=== PATIENT | female | born 1990 | race Caucasian/White ===

== ENCOUNTER 2017-06-21 06:28 | Emergency (ER) | payer OTHER ==
[~2017-06-21] VITALS: Ht 167.6 cm; Wt 81.7 kg
[~2017-06-21 06:28] MED LIST: ACETAMINOPHEN-1 EAC1 PO; AMOXICILLIN500 MG PO; BACTRIM DS TAB1 EACH PO; CEPACOL SORE T1 EAC5 MM; CLONAZEPAM0.5 MG PO; CLONAZEPAM1 MG PO; CLONIDINE HCL0.1 MG PO; CYCLOBENZAPRINE10 MG PO; CYMBALTA60 MG PO; DIFLUCAN150 MG PO; DULOXETINE HCL60 MG PO; FLEXERIL10 MG PO; HYDROCODON-ACE1 EA10 PO; IBUPROFEN600 MG PO; IBUPROFEN800 MG PO; KEFLEX500 MG PO; LAMICTAL100 MG PO; LEVAQUIN500 MG PO; MELATONIN1 MG PO; METHOCARBAMOL500 MG PO; MIRENA1 EACH IY; MOTRIN IB200 MG PO; MOTRIN800 MG PO; NICORETTE4 M1 BUCCAL; NORCO 5-325 TA1 EACH PO; ONDANSETRON ODT4 MG PO; OSTERA TABLET1 EACH PO; PENICILLIN V P500 MG PO; PERCOCET 5-3251 EACH PO; PORTIA1 EACH PO; PROMETHAZINE HC25 M1 PO; PROMETHAZINE12.5 M1 PO; PROPRANOLOL HCL20 MG PO; PROPRANOLOL HCL40 MG PO; PROVENTIL HFA6.7 GM INH; PYRIDIUM200 MG PO; QUASENSE1 EACH PO; SEASONIQUE 0.11 EACH PO; SEPTRA DS TABL1 EACH PO; SUBOXONE 8 MG-1 EAC1 SL; TESSALON PERLE100 MG PO; TRAMADOL HCL50 MG PO; ULTRAM50 MG PO; VALIUM5 MG PO; VICODIN HP 10-1 EAC1 PO; VISTARIL25 MG PO; WELLBUTRIN100 MG PO; ZOFRAN ODT4 MG PO; ZOFRAN ODT4 MG SL; ZOFRAN ODT8 MG PO; ZOLPIDEM TARTRA10 MG PO; [UNRECOGNIZED DRUG - REMARK]
[2017-06-21] MEDS ORDERED: CLOMIPRAMINE HC75 MG PO (06:47)
[2017-06-21] MEDS ORDERED: LAMOTRIGINE100 MG PO (06:48)
[2017-06-21] MEDS ORDERED: CLONAZEPAM1 MG PO (06:48)
[2017-06-21] MEDS ORDERED: ONDANSETRON ODT8 MG PO (07:49)
[2017-06-21] MEDS ORDERED: PROTONIX40 MG PO (07:49)
== END 2017-06-21 08:05 | disposition home or self-care (01) ==
LOC: ED 06:28
DX: K29.70 Gastritis, unspecified, without bleeding (principal); F31.9 Bipolar disorder, unspecified; M79.7 Fibromyalgia; F17.200 Nicotine dependence, unspecified, uncomplicated; Z87.442 Personal history of urinary calculi; Z90.89 Acquired absence of other organs; Z90.49 Acquired absence of other specified parts of digestive tract; Z79.899 Other long term (current) drug therapy
CPT/HCPCS: 80053; 81001; 82150; 83690; 84703; 85025; 96374; 96375; 99283; J1170; J2405; J7030

== ENCOUNTER 2017-10-06 13:57 | Emergency (ER) | payer OTHER ==
[~2017-10-06] VITALS: Ht 167.6 cm; Wt 81.7 kg
--- OUTSIDE RECORDS SUMMARY | ~2017-10-06 | XMS | Clinical Summary ---
Demographics + + + | Address | [address] | | | [place] [address] | + + + | Home Phone | | + + + | Preferred Language | Unknown | + + + | Marital Status | Single | + + + | Orthodoxy Affiliation | Unknown | + + + | Race | Unknown | + + + | Ethnic Group | Other Race | + + + Author + + + | Author | [facility] | + + + | Organization | [facility] | + + + | Address | Unknown | + + + | Phone | Unavailable | + + + Care Team Providers + +------+ + | Care Commercial Sales Specialist Name | Role | Phone | + +------+ + PP | Unavailable | + +------+ + Source Comments ZAK is fully live on both [facility] Amb[facility] and [facility] InPatient.[facility] Allergies Not on File Current [...]
--- OUTSIDE RECORDS SUMMARY | ~2017-10-06 | XMS | Clinical Summary ---
Demographics + + + | Address | [address] | | | [place] [address] | + + + | Home Phone | | + + + | Preferred Language | Unknown | + + + | Marital Status | Single | + + + | Quaker Affiliation | Unknown | + + + | Race | Unknown | + + + | Ethnic Group | Other Race | + + + Author + + + | Author | [facility] | + + + | Organization | [facility] | + + + | Address | Unknown | + + + | Phone | Unavailable | + + + Care Team Providers + +------+ + | Care Shiftman Name | Role | Phone | + +------+ + PP | Unavailable | + +------+ + Source Comments ZAK is fully live on both [facility] and [facility] InPatient.[facility] & [facility] Allergies Not on File Current Medications Not [...]
[~2017-10-06 13:57] MED LIST changes: +CLOMIPRAMINE HC75 MG PO; +LAMOTRIGINE100 MG PO; +ONDANSETRON ODT8 MG PO; +PROTONIX40 MG PO
[2017-10-06] MEDS ORDERED: XANAX0.5 MG PO (14:49)
[2017-10-09] MEDS ORDERED: PHENERGAN25 MG PR (18:04)
[2017-10-09] MEDS ORDERED: ZOFRAN ODT4 MG PO (18:04)
== END 2017-10-06 14:59 | disposition home or self-care (01) ==
LOC: ED 13:57
DX: F41.9 Anxiety disorder, unspecified (principal); F32.9 Major depressive disorder, single episode, unspecified; F17.200 Nicotine dependence, unspecified, uncomplicated; Z79.899 Other long term (current) drug therapy
CPT/HCPCS: 99283

== ENCOUNTER 2017-11-05 02:32 | Emergency (ER) | payer OTHER ==
[~2017-11-05] VITALS: Ht 167.6 cm; Wt 81.7 kg
[~2017-11-05 02:32] MED LIST changes: +PHENERGAN25 MG PR; +XANAX0.5 MG PO
--- OUTSIDE RECORDS SUMMARY | 2017-11-05 04:23 | XMS | Clinical Summary ---
Demographics + + + | Address | [address] | | | [place] [address] | + + + | Home Phone | | + + + | Preferred Language | Unknown | + + + | Marital Status | Single | + + + | Jewish Affiliation | Unknown | + + + | Race | Unknown | + + + | Ethnic Group | Other Race | + + + Author + + + | Author | [facility] | + + + | Organization | [facility] | + + + | Address | Unknown | + + + | Phone | Unavailable | + + + Care Team Providers + +------+ + | Care Outbound Sales Specialist Name | Role | Phone | + +------+ + PP | Unavailable | + +------+ + Source Comments ZAK is fully live on both [facility] and [facility] InPatient.[facility] Allergies Not on File Current Medications Not on file Active Problems Not on file Social History + +-------+ +--------+------+ | Tobacco Use | Types | Packs/Day | Years | Date | | | | | Used | | + +-------+ +--------+------+ | Never Assessed | | | | | + +-------+ +--------+------+ + + + | Sex Assigned at | Date Recorded | | | | + + + | Not on file | | + + + Plan of Treatment + + + + + | Health Maintenance | Due Date | Last Done | Comments | + + + + + | INFLUENZA VACCINE | | | | | (FLU SHOT) | 7 | | | + + + + + Results Not on filefrom Last 3 Months"
--- OUTSIDE RECORDS SUMMARY | 2017-11-05 04:23 | XMS | Clinical Summary ---
Demographics + + + | Address | [address] | | | [place] [address] | + + + | Home Phone | | + + + | Preferred Language | Unknown | + + + | Marital Status | Single | + + + | Sikhism Affiliation | Unknown | + + + | Race | Unknown | + + + | Ethnic Group | Other Race | + + + Author + + + | Author | [facility] | + + + | Organization | [facility] | + + + | Address | Unknown | + + + | Phone | Unavailable | + + + Care Team Providers + +------+ + | Care Filter Press Operator Name | Role | Phone | + +------+ + PP | Unavailable | + +------+ + Source Comments ZAK is fully live on both [facility] and [facility] InPatient.[facility] & [facility] Allergies Not on File Current Medications [...]
[2017-11-05] MEDS ORDERED: PHENERGAN25 MG PR (10:29)
== END 2017-11-05 05:31 | disposition home or self-care (01) ==
LOC: ED 02:32
DX: K52.9 Noninfective gastroenteritis and colitis, unspecified (principal); F31.9 Bipolar disorder, unspecified; F32.9 Major depressive disorder, single episode, unspecified; F17.200 Nicotine dependence, unspecified, uncomplicated; Z79.899 Other long term (current) drug therapy
CPT/HCPCS: 80053; 81001; 83690; 84703; 85025; 87088; 96374; 96375; 99283; J2270; J2405; J2550; J7030

== ENCOUNTER 2017-11-05 09:21 | Emergency (ER) | payer OTHER ==
[~2017-11-05] VITALS: Ht 167.6 cm; Wt 79.4 kg
[2017-11-05] MEDS ORDERED: PHENERGAN25 MG PR (10:29)
== END 2017-11-05 10:59 | disposition home or self-care (01) ==
LOC: ED 09:21
DX: G43.A0 Cyclical vomiting, in migraine, not intractable (principal); F31.9 Bipolar disorder, unspecified; Z87.442 Personal history of urinary calculi; F17.200 Nicotine dependence, unspecified, uncomplicated; Z79.899 Other long term (current) drug therapy
CPT/HCPCS: 96372; 96374; 99283; J2405; J3486; J7030

== ENCOUNTER 2019-10-22 08:59 | Emergency (ER) | payer OTHER ==
[~2019-10-22] VITALS: Ht 167.6 cm; Wt 79.4 kg
--- OUTSIDE RECORDS SUMMARY | 2019-10-22 09:02 | XMS ---
PreManage Notification: SERA BEVERLY Security Kiss Machine Operator Events No recent Security Events currently on file CRITERIA MET - Group Notification CARE PROVIDERS EBENEZER FALK Padded Products Inspector Trimmer Current PHONE: [phone] [facility] Current PHONE: [phone] \\E\\"ORESTES JOHNSON\\" Nurse Practitioner Current PHONE: [phone] DR VIDAL Contreras 09/05/2017-Current PHONE: [phone] ROSE YA Primary Care 01/07/2019-Current PHONE: Unknown RAPHAEL JAY Primary Care Current PHONE: Unknown Zak Mercedes Mental Health Provider 04/27/2018-05/04/2018 [facility] PHONE: Unknown KATELYNN HOBSON Primary Care Current PROVIDERS PHONE: Unknown Nichloe Argueta Primary Care Wendie MEEKS PHONE: [phone] Ivelisse has no Care Guidelines for this patient. Care History Substance Use/Overdose 10/09/2017 [facility] PT IS UNDER SUBOXONE TREATMENT PROGRAM WITH DR VIDAL BARRERA OF [employer] [facility] ([phone]). DO NOT GIVE OPIATES IF PATIENT IS SEEN IN ED. Marielena VISIT COUNT (12 MO.) 3 [facility] 1 [facility] 1 [facility] TOTAL 6 NOTE: Visits indicate total known visits. ED/C VISIT TRACKING (12 MO.) 10/22/2019 09:00 [facility] [place] TYPE: Emergency COMPLAINT: - RIGHT SIDE ABD PAIN 08/26/2019 10:45 [facility] TYPE: Emergency DIAGNOSES: - Major depressive disorder, single episode, unspecified - Medication Refill - Anxiety disorder, unspecified 05/12/2019 17:21 [facility] TYPE: Emergency DIAGNOSES: 78759. Acute post-traumatic headache, not intractable 46490. Contusion of lower back and pelvis, initial encounter 53293. Strain of muscle, fascia and tendon at neck level, init 85047. Contusion of scalp, initial encounter 98994. Contusion of left upper arm, initial encounter 75531. Contusion of left front wall of thorax, initial encounter 04/04/2019 20:01 [facility] [place] TYPE: Emergency DIAGNOSES: - Pelvic Pain - Pelvic and perineal pain 01/30/2019 13:10 [facility] [place] TYPE: Emergency DIAGNOSES: - Dental Pain - Other specified disorders of teeth and supporting structures 12/03/2018 05:21 [facility] [place] TYPE: Emergency DIAGNOSES: - Pelvic and perineal pain - Pelvic Pain INPATIENT VISIT TRACKING (12 MO.) No inpatient visits to display in this time frame [id number]
[2019-10-22] MEDS ORDERED: LAMOTRIGINE100 MG PO (09:24)
[2019-10-22] MEDS ORDERED: ZYPREXA5 MG PO (09:25)
== END 2019-10-22 11:00 | disposition home or self-care (01) ==
LOC: ED 08:59
DX: N93.8 Other specified abnormal uterine and vaginal bleeding (principal); N83.201 Unspecified ovarian cyst, right side; F31.9 Bipolar disorder, unspecified; F17.200 Nicotine dependence, unspecified, uncomplicated; Z79.899 Other long term (current) drug therapy
CPT/HCPCS: 51701; 81001; 84703; 99284-25

== ENCOUNTER 2019-11-22 16:25 | Emergency (ER) | payer OTHER ==
[~2019-11-22] VITALS: Ht 167.6 cm; Wt 83.9 kg
[~2019-11-22 16:25] MED LIST changes: +ZYPREXA5 MG PO
--- OUTSIDE RECORDS SUMMARY | 2019-11-22 16:28 | XMS ---
PreManage Notification: SERA BEVERLY Security Fabrication Inspector Events No recent Security Events currently on file CRITERIA MET - Group Notification - [facility] - Has Care Guidelines - PDMP CARE PROVIDERS EBENEZER FALK Chemical Applicator Current PHONE: [phone] [facility] Current PHONE: [phone] KAMALJIT JOHNSON Nurse Kathie Current PHONE: [phone] DR VIDAL Contreras 09/05/2017-Current PHONE: [phone] HANK ROSE Primary Care 01/07/2019-Current PHONE: [phone] RAPHAEL JAY Primary Care Current PHONE: Unknown Zak Mercedes Mental Health Provider 04/27/2018-05/04/2018 [facility] PHONE: Unknown HELLEN MELISSA Primary Care [facility] PHONE: Unknown Nichole Argueta Primary Care Wendie MEEKS PHONE: [phone] Ivelisse has no Care Guidelines for this patient. Care History Medical/Surgical 10/25/2019 [facility] \T\middot;\T\nbsp; PATIENT IS A [employer] MEMBER. \T\middot;\T\nbsp; PLEASE REFER PATIENT TO [facility] FOR NON EMERGENT MEDICAL NEEDS. \T\middot;\ T\nbsp; [facility] CAN SEE PATIENTS SAME DAY FOR APTS IF PATIENT CALLS FIRST THING IN THE MORNING. Substance Use/Overdose 10/09/2017 [facility] PT IS UNDER SUBOXONE TREATMENT PROGRAM WITH DR VIDAL BARRERA OF [employer] [facility] ([phone]). DO NOT GIVE OPIATES IF PATIENT IS SEEN IN ED. E.D. VISIT COUNT (12 MO.) 3 [facility] 1 [facility] 1 [facility] 2 [facility]. TOTAL 7 NOTE: Visits indicate total known visits. 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 Acute post-traumatic headache, not intractable 52692. Contusion of lower back and pelvis, initial encounter 84820. Strain of muscle, fascia [place] [address]. Contusion of scalp, initial encounter 26056. Contusion of left upper arm, initial encounter 44461. Contusion of left front wall of thorax, initial encounter 04/04/2019 20:01 [facility] [place] TYPE: Emergency DIAGNOSES: - Pelvic Pain - Pelvic and perineal pain 01/30/2019 13:10 [facility] [place] TYPE: Emergency DIAGNOSES: - Dental Pain - Other specified disorders of teeth and supporting structures 12/03/2018 05:21 [facility] [place] TYPE: Emergency DIAGNOSES: - Pelvic and perineal pain - Pelvic Pain INPATIENT VISIT TRACKING (12 MO.) No inpatient visits to display in this time frame [id number]
[2019-11-22] MEDS ORDERED: MINIPRESS1 MG PO (16:58)
== END 2019-11-22 19:45 | disposition home or self-care (01) ==
LOC: ED 16:25
DX: O20.0 Threatened abortion (principal)
CPT/HCPCS: 76801; 76817; 81001; 84702; 85025; 99284-25

== ENCOUNTER 2020-12-31 13:28 | Emergency (ER) | payer OTHER ==
[~2020-12-31] VITALS: Ht 167.6 cm; Wt 83.9 kg
[~2020-12-31 13:28] MED LIST changes: +MINIPRESS1 MG PO
--- OUTSIDE RECORDS SUMMARY | 2020-12-31 13:34 | XMS ---
PreManage Notification: SERA BEVERLY Security Warehouse Associate Events No recent Security Events currently on file CRITERIA MET - Group Notification - [facility] CARE PROVIDERS EBENEZER GARVEY Supervisor Telephone Information Current PHONE: [phone] AVERY [facility] Current PHONE: [phone] KAMALJIT JOHNSON Nurse Kathie Current PHONE: [phone] SHANNON [facility] 12/06/2019-[facility] PHONE: [phone] Ivelisse has no Care Guidelines for this patient. Care History Substance Use/Overdose 10/09/2017 [facility] PT IS UNDER SUBOXONE TREATMENT PROGRAM WITH DR VIDAL BARRERA OF [employer] [facility] ([phone]). DO NOT GIVE OPIATES IF PATIENT IS SEEN IN ED. Medical/Surgical 10/25/2019 [facility] - PATIENT IS A YELLOWHAWK ELIGIBLE, \T\middot;\T\nbsp; [facility] NON [facility]GENT [facility] NEEDS. \T\middot;\T\nbsp; [facility] FOR APTS IF PATIENT CALLS FIRST THING IN THE MORNING. E.D. VISIT COUNT (12 MO.) 1 [facility] 1 [facility]. TOTAL 2 NOTE: Visits indicate total known visits. ED/UCC VISIT TRACKING (12 MO.) 12/31/2020 13:29 [facility] [place] TYPE: Emergency COMPLAINT: - POST OP TOOTH PROBLEM 07/07/2020 22:52 [facility] C[facility] [place] TYPE: Emergency DIAGNOSES: - Hemorrhoids - Bleeding - Residual hemorrhoidal skin tags INPATIENT VISIT TRACKING (12 MO.) No inpatient visits to display in this time frame [id number]
[2020-12-31] MEDS ORDERED: ZITHROMAX250 MG PO (13:47)
[2020-12-31] MEDS ORDERED: CYMBALTA60 MG PO (13:48)
[2020-12-31] MEDS ORDERED: ZYPREXA5 MG PO (13:48)
[2020-12-31] MEDS ORDERED: HYDROCODON-ACE1 EA10 PO (14:14)
== END 2020-12-31 14:19 | disposition home or self-care (01) ==
LOC: ED 13:28
DX: G89.18 Other acute postprocedural pain (principal); K08.89 Other specified disorders of teeth and supporting structures; Z79.899 Other long term (current) drug therapy
CPT/HCPCS: 99282

== ENCOUNTER 2021-03-04 14:37 | Emergency (ER) | payer OTHER ==
[~2021-03-04] VITALS: Ht 167.6 cm; Wt 79.4 kg
[~2021-03-04 14:37] MED LIST changes: +ZITHROMAX250 MG PO
--- OUTSIDE RECORDS SUMMARY | 2021-03-04 14:40 | XMS ---
PreManage Notification: SERA BEVERLY Security Inclined Railway Operator Events No recent Security Events currently on file CRITERIA MET - [facility] - PDMP - Group Notification CARE PROVIDERS EBENEZER GARVEY Fuse Cup Expander Current PHONE: [phone] AVERY [facility] Current PHONE: [phone] KAMALJIT JOHNSON Nurse Kathie Current PHONE: [phone] SHANNON [facility] 12/06/2019-[facility] PHONE: [phone] Ivelisse has no Care Guidelines for this patient. Care History Substance Use/Overdose 10/09/2017 [facility] PT IS UNDER SUBOXONE TREATMENT PROGRAM WITH DR VIDAL BARRERA OF [employer] [facility] ([phone]). DO NOT GIVE OPIATES IF PATIENT IS SEEN IN ED. Medical/Surgical 10/25/2019 [facility] - PATIENT IS A YELLOWHAWK ELIGIBLE, \T\middot;\T\nbsp; PLEASE REFER PATIENT TO [facility] FOR NON EMERGENT MEDICAL NEEDS. \T\middot;\T\nbsp; [facility] SAME DAY FOR APTS IF PATIENT CALLS FIRST THING IN THE MORNING. E.D. VISIT COUNT (12 MO.) 1 [facility]anda [facility] 2 [facility]. TOTAL 3 NOTE: Visits indicate total known visits. ED/UCC VISIT TRACKING (12 MO.) 03/04/2021 14:38 [facility] [place] TYPE: Emergency COMPLAINT: - RIGHT SIDE ABD PAIN, VOMITING 12/31/2020 13:29 [facility] [place] TYPE: Emergency COMPLAINT: - POST OP TOOTH PROBLEM DIAGNOSES: - Other specified disorders of teeth and supporting structures - Other acute postprocedural pain - Other care home (current) drug therapy 07/07/2020 22:52 [facility] Cee [facility] [place] TYPE: Emergency DIAGNOSES: - Hemorrhoids - Bleeding - Residual hemorrhoidal skin tags INPATIENT VISIT TRACKING (12 MO.) No inpatient visits to display in this time frame [id number]
[2021-03-04] MEDS ORDERED: PRENATAL TABLE1 EAC2 PO (17:51)
== END 2021-03-04 18:00 | disposition home or self-care (01) ==
LOC: ED 14:37
DX: O99.891 Other specified diseases and conditions complicating pregnancy (principal); R10.2 Pelvic and perineal pain; F17.200 Nicotine dependence, unspecified, uncomplicated; Z79.899 Other long term (current) drug therapy; O99.331 Smoking (tobacco) complicating pregnancy, first trimester
CPT/HCPCS: 76801; 76817; 80053; 81001; 83690; 83735; 84702; 84703; 85025; 96361; 96374; 96375; 99284-25; J1885; J2405; J7030

== ENCOUNTER 2021-03-22 12:40 | Emergency (ER) | payer OTHER ==
[~2021-03-22] VITALS: Ht 167.6 cm; Wt 79.4 kg
[~2021-03-22 12:40] MED LIST changes: +PRENATAL TABLE1 EAC2 PO
--- OUTSIDE RECORDS SUMMARY | 2021-03-22 12:48 | XMS ---
PreManage Notification: SERA BEVERLY Security Veneer Trimmer Events No recent Security Events currently on file CRITERIA MET - [facility] - 2 Visits in 30 Days - Group Notification - [facility] - Has Care Guidelines CARE PROVIDERS EBENEZER GARVEY Cat Scan Tech Current PHONE: [phone] AVERY [facility] Current PHONE: [phone] KAMALJIT JOHNSON Nurse Kathie Current PHONE: [phone] SHANNON [facility] 12/06/2019-[facility] PHONE: [phone] Ivelisse has no Care Guidelines for this patient. Care History Substance Use/Overdose 10/09/2017 [facility] PT IS UNDER SUBOXONE TREATMENT PROGRAM WITH DR VIDAL BARRERA OF [employer] [facility] ([phone]). DO NOT GIVE OPIATES IF PATIENT IS SEEN IN ED. Medical/Surgical 03/07/2021 [facility] - PATIENT HAS AN APT WITH OBGUALBERTO CAO ON 03/07/21. 10/25/2019 [facility] - PATIENT IS A YELLOWHAWK ELIGIBLE, \T\middot;\T\nbsp; PLEASE REFER PATIENT [facility] FOR NON EMERGENT MEDICAL NEEDS. \T\middot;\T\nbsp; [facility] CAN SEE PATIENTS SAME DAY FOR APTS IF PATIENT CALLS FIRST THING IN THE MORNING. E.D. VISIT COUNT (12 MO.) 1 [facility] 3 [facility]. TOTAL 4 NOTE: Visits indicate total known visits. ED/UCC VISIT TRACKING (12 MO.) 03/22/2021 12:41 [facility] [place] TYPE: Emergency COMPLAINT: - VAGINAL BLEEDING/PAIN 03/04/2021 14:38 [facility] [place] TYPE: Emergency COMPLAINT: - RIGHT SIDE ABD PAIN, VOMITING DIAGNOSES: - Left lower quadrant pain - Nicotine dependence, unspecified, uncomplicated - Smoking (tobacco) complicating , first trimester - Other mcfp (current) drug therapy - Other specified diseases and conditions complicating - Pelvic and perineal pain 12/31/2020 13:29 [facility] [place] TYPE: Emergency COMPLAINT: - POST OP TOOTH PROBLEM DIAGNOSES: - Other specified disorders of teeth and supporting structures - Other acute postprocedural pain - Other mcfp (current) drug therapy 07/07/2020 22:52 [facility] TYPE: Emergency DIAGNOSES: - Hemorrhoids - Bleeding - Residual hemorrhoidal skin tags INPATIENT VISIT TRACKING (12 MO.) No inpatient visits to display in this time frame [id number]
[2021-03-22] MEDS ORDERED: PROMETHAZINE HC25 M1 PO (14:38)
== END 2021-03-22 14:50 | disposition home or self-care (01) ==
LOC: ED 12:40
DX: O20.0 Threatened abortion (principal); Z3A.01 Less than 8 weeks gestation of pregnancy; O99.331 Smoking (tobacco) complicating pregnancy, first trimester; F17.200 Nicotine dependence, unspecified, uncomplicated; Z79.899 Other long term (current) drug therapy
CPT/HCPCS: 76801; 76817; 81001; 84702; 85025; 86900; 99284-25

== ENCOUNTER 2021-03-30 19:03 | Emergency (ER) | payer OTHER ==
[~2021-03-30] VITALS: Ht 167.6 cm; Wt 81.7 kg
--- OUTSIDE RECORDS SUMMARY | 2021-03-30 19:06 | XMS ---
PreManage Notification: SERA BEVERLY Security Security Support Analyst Events No recent Security Events currently on file CRITERIA MET - Group Notification - PDMP - [facility] - Has Care Guidelines - [facility] - 2 Visits in 30 Days CARE PROVIDERS EBENEZER GARVEY Lawn Service Manager Current PHONE: [phone] AVERY [facility] Current PHONE: [phone] KAMALJIT JOHNSON Nurse Kathie Current PHONE: [phone] [facility] [facility]/06/2019-[facility] PHONE: [phone] Ivelisse has no Care Guidelines for this patient. Care History Medical/Surgical 03/07/2021 [facility] - PATIENT HAS AN APT WITH OBGUALBERTO CAO ON 03/07/21. 10/25/2019 [facility] - PATIENT IS A YELLOWHAWK ELIGIBLE, \T\middot;\T\nbsp; PLEASE REFER PATIENT TO [facility] FOR NON EMERGENT MEDICAL NEEDS. \T\middot;\T\nbsp; [facility] CAN SEE PATIENTS SAME DAY FOR APTS IF PATIENT CALLS FIRST THING IN THE MORNING. Substance Use/Overdose 10/09/2017 [facility] PT IS UNDER SUBOXONE TREATMENT PROGRAM WITH DR VIDAL BARRERA OF [employer] [facility] ([phone]). DO NOT GIVE OPIATES IF PATIENT IS SEEN IN ED. E.D. VISIT COUNT (12 MO.) 1 [facility] 4 [facility]. TOTAL 5 NOTE: Visits indicate total known visits. ED/UCC VISIT TRACKING (12 MO.) 03/30/2021 19:03 [facility] [place] TYPE: Emergency COMPLAINT: - ABD PAIN 03/22/2021 12:41 [facility] [place] TYPE: Emergency COMPLAINT: - VAGINAL BLEEDING/PAIN DIAGNOSES: - Less than 8 weeks gestation of - Nicotine dependence, unspecified, uncomplicated - Pelvic and perineal pain - Smoking (tobacco) complicating , first trimester - Other termite treater helper (current) drug therapy - Threatened 03/04/2021 14:38 [facility] [place] TYPE: Emergency COMPLAINT: - RIGHT SIDE ABD PAIN, VOMITING DIAGNOSES: - Left lower quadrant pain - Nicotine dependence, unspecified, uncomplicated - Smoking (tobacco) complicating , first trimester - Other termite treater helper (current) drug therapy - Other specified diseases and conditions complicating - Pelvic and perineal pain 12/31/2020 13:29 [facility] [place] TYPE: Emergency COMPLAINT: - POST OP TOOTH PROBLEM DIAGNOSES: - Other specified disorders of teeth and supporting structures - Other acute postprocedural pain - Other halfway (current) drug therapy 07/07/2020 22:52 [place] [place] TYPE: Emergency DIAGNOSES: - Hemorrhoids - Bleeding - Residual hemorrhoidal skin tags INPATIENT VISIT TRACKING (12 MO.) No inpatient visits to display in this time frame [id number]
[2021-03-30] MEDS ORDERED: DOXYCYCLINE HY100 MG PO (21:53)
[2021-03-30] MEDS ORDERED: HYDROCODON-ACE1 EA10 PO (21:53)
== END 2021-03-30 22:50 | disposition home or self-care (01) ==
LOC: ED 19:03
DX: N71.9 Inflammatory disease of uterus, unspecified (principal); Z20.822 Contact with and (suspected) exposure to COVID-19; Z87.891 Personal history of nicotine dependence; Z79.899 Other long term (current) drug therapy
CPT/HCPCS: 76801; 76817; 80053; 81001; 83605; 84702; 85025; 87040; 96374; 96375; 99284-25; C9803; J0696; J1170; J1885; J2405; J7030; U0003

== ENCOUNTER 2021-05-24 23:26 | Emergency (ER) | payer OTHER ==
[~2021-05-24] VITALS: Ht 167.6 cm; Wt 81.7 kg
[~2021-05-24 23:26] MED LIST changes: +DOXYCYCLINE HY100 MG PO
--- OUTSIDE RECORDS SUMMARY | 2021-05-24 23:28 | XMS ---
PreManage Notification: SERA BEVERLY Security Palliative Nurse Events No recent Security Events currently on file CRITERIA MET - PDMP - Group Notification CARE PROVIDERS EBENEZER GARVEY Byproducts Pump Operator Current PHONE: [phone] AVERY [facility] Current PHONE: [phone] KAMALJIT JOHNSON Nurse Kathie Current PHONE: [phone] SHANNON [place] 12/06/2019[facility] PHONE: [phone] Ivelisse has no Care Guidelines for this patient. Care History Substance Use/Overdose 10/09/2017 [facility] PT IS UNDER SUBOXONE TREATMENT PROGRAM WITH DR VIDAL BARRERA OF [employer] [facility] ([phone]). DO NOT GIVE OPIATES IF PATIENT IS SEEN IN ED. Medical/Surgical 03/07/2021 [facility] - PATIENT HAS AN APT WITH OBGUALBERTO CAO ON 03/07/21. 10/25/2019 [facility] - PATIENT IS A YELLOWHAWK ELIGIBLE, \T\middot;\T\nbsp; PLEASE REFER [facility] FOR NON EMERGENT MEDICAL NEEDS. \T\middot;\T\nbsp; [facility] SAME DAY FOR APTS IF PATIENT CALLS FIRST THING IN THE MORNING. E.D. VISIT COUNT (12 MO.) 1 [facility] Cee [facility] 5 [facility]. TOTAL 6 NOTE: Visits indicate total known visits. ED/UCC VISIT TRACKING (12 MO.) 05/24/2021 23:26 [facility] [place] TYPE: Emergency COMPLAINT: - SKIN PROBLEM 03/30/2021 19:03 [facility] [place] TYPE: Emergency COMPLAINT: - ABD PAIN DIAGNOSES: - Unspecified abdominal pain - Other fpc (current) drug therapy - Inflammatory disease of uterus, unspecified - Personal history of nicotine dependence 03/22/2021 12:41 [facility] [place] TYPE: Emergency COMPLAINT: - VAGINAL BLEEDING/PAIN DIAGNOSES: - Less than 8 weeks gestation of - Nicotine dependence, unspecified, uncomplicated - Pelvic and perineal pain - Smoking (tobacco) complicating , first trimester - Other fpc (current) drug therapy - Threatened 03/04/2021 14:38 [facility] [place] TYPE: Emergency COMPLAINT: - RIGHT SIDE ABD PAIN, VOMITING DIAGNOSES: - Left lower quadrant pain - Nicotine dependence, unspecified, uncomplicated - Smoking (tobacco) complicating , first trimester - Other fpc (current) drug therapy - Other specified diseases and conditions complicating - Pelvic and perineal pain 12/31/2020 13:29 [facility] [place] TYPE: Emergency COMPLAINT: - POST OP TOOTH PROBLEM DIAGNOSES: - Other specified disorders of teeth and supporting structures - Other acute postprocedural pain - Other fpc (current) drug therapy 07/07/2020 22:52 [facility] Cee [facility] [place] TYPE: Emergency DIAGNOSES: - Hemorrhoids - Bleeding - Residual hemorrhoidal skin tags INPATIENT VISIT TRACKING (12 MO.) No inpatient visits to display in this time frame [id number]
[2021-05-24] MEDS ORDERED: KLONOPIN1 MG PO (23:45)
[2021-05-25] MEDS ORDERED: BACTRIM DS TAB1 EACH PO (01:12)
[2021-05-25] MEDS ORDERED: CEPHALEXIN500 MG PO (01:12)
[2021-05-25] MEDS ORDERED: HYDROCODON-ACE1 EA10 PO (01:12)
== END 2021-05-25 01:34 | disposition home or self-care (01) ==
LOC: ED 23:26
PROC: 0H91XZZ Drainage of Face Skin, External Approach (ICD-10-PCS; principal; 2021-05-24)
DX: L02.01 Cutaneous abscess of face (principal); M79.7 Fibromyalgia; E28.2 Polycystic ovarian syndrome; F17.200 Nicotine dependence, unspecified, uncomplicated; Z79.899 Other long term (current) drug therapy
CPT/HCPCS: 10060; 87070; 87205; 99283-25

== ENCOUNTER 2021-09-21 00:10 | Emergency (ER) | payer OTHER ==
[~2021-09-21] VITALS: Ht 167.6 cm; Wt 81.7 kg
[~2021-09-21 00:10] MED LIST changes: +CEPHALEXIN500 MG PO; +KLONOPIN1 MG PO
--- OUTSIDE RECORDS SUMMARY | 2021-09-21 00:14 | XMS ---
PreManage Notification: SERA BEVERLY Security Oral And Maxillofacial Pathologist Events No recent Security Events currently on file CRITERIA MET - Group Notification - PDMP CARE PROVIDERS EBENEZER GARVEY Screwhead Polisher Current PHONE: Unknown KAMALJIT JOHNSON Nurse Kathie Current PHONE: Unknown [facility] 12/06/2019-[facility] PHONE: [phone] Ivelisse has no Care Guidelines for this patient. Care History Medical/Surgical 03/07/2021 [facility] - PATIENT HAS AN APT WITH OBGUALBERTO CAO ON 03/07/21. 10/25/2019 [facility] - PATIENT IS A [place] ELIGIBLE, \T\middot;\T\nbsp; PLEASE REFER PATIENT TO [facility] FOR NON EMERGENT MEDICAL NEEDS. \T\middot;\T\nbsp; [facility] CAN SEE PATIENTS SAME DAY FOR APTS IF PATIENT CALLS FIRST THING IN THE MORNING. Substance Use/Overdose 10/09/2017 [facility] PT IS UNDER SUBOXONE TREATMENT PROGRAM WITH DR VIDAL BARRERA OF [facility] ([phone]). DO NOT GIVE OPIATES IF PATIENT IS SEEN IN ED. E.D. VISIT COUNT (12 MO.) [address] TOTAL 7 NOTE: Visits indicate total known visits. ED/[facility] VISIT TRACKING (12 MO.) 09/21/2021 00:11 [place] TYPE: Emergency COMPLAINT: - MEDICAL CLEARANCE 05/27/2021 12:58 [facility] [place] TYPE: Emergency DIAGNOSES: - pos infection on chin - Abscess - poss infection on chin - Cutaneous abscess of face 05/24/2021 23:26 [facility] [place] TYPE: Emergency COMPLAINT: - SKIN PROBLEM DIAGNOSES: - Cellulitis of face - Cutaneous abscess of face - Nicotine dependence, unspecified, uncomplicated - Other longterm (current) drug therapy - Localized swelling, mass and lump, head - Polycystic ovarian syndrome - Fibromyalgia 03/30/2021 19:03 [facility] [place] TYPE: Emergency COMPLAINT: - ABD PAIN DIAGNOSES: - Unspecified abdominal pain - Other longterm (current) drug therapy - Inflammatory disease of uterus, unspecified - Personal history of nicotine dependence 03/22/2021 12:41 [facility] [place] TYPE: Emergency COMPLAINT: - VAGINAL BLEEDING/PAIN DIAGNOSES: - Less than 8 weeks gestation of - Nicotine dependence, unspecified, uncomplicated - Pelvic and perineal pain - Smoking (tobacco) complicating , first trimester - Other longterm (current) drug therapy - Threatened 03/04/2021 14:38 [facility] [place] TYPE: Emergency COMPLAINT: - RIGHT SIDE ABD PAIN, VOMITING DIAGNOSES: - Left lower quadrant pain - Nicotine dependence, unspecified, uncomplicated - Smoking (tobacco) complicating , first trimester - Other longterm (current) drug therapy - Other specified diseases and conditions complicating - Pelvic and perineal pain 12/31/2020 13:29 [facility] [place] TYPE: Emergency COMPLAINT: - POST OP TOOTH PROBLEM DIAGNOSES: - Other specified disorders of teeth and supporting structures - Other acute postprocedural pain - Other rodent exterminator (current) drug therapy INPATIENT VISIT TRACKING (12 MO.) No inpatient visits to display in this time frame [email or web address]
== END 2021-09-21 02:14 | disposition home or self-care (01) ==
LOC: ED 00:10
DX: R45.851 Suicidal ideations (principal); F15.10 Other stimulant abuse, uncomplicated; M79.7 Fibromyalgia; F17.200 Nicotine dependence, unspecified, uncomplicated; F31.9 Bipolar disorder, unspecified; F41.8 Other specified anxiety disorders; Z79.899 Other long term (current) drug therapy
CPT/HCPCS: 80053; 81001; 84443; 85025; 99285; G0480

== ENCOUNTER 2021-10-26 13:08 | Emergency (ER) | payer OTHER ==
[~2021-10-26] VITALS: Ht 167.6 cm; Wt 81.7 kg
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
[2021-10-26] MEDS ORDERED: CLINDAMYCIN HC300 MG PO (13:22)
[2021-10-26] MEDS ORDERED: DOXYCYCLINE HY100 MG PO (13:31)
[2021-10-26] MEDS ORDERED: HYDROCODON-ACE1 EA11 PO (14:26)
[2021-10-26] MEDS ORDERED: CENTANY30 GM TOP (14:26)
== END 2021-10-26 14:48 | disposition home or self-care (01) ==
LOC: ED 13:08
DX: L02.01 Cutaneous abscess of face (principal); B95.62 Methicillin resistant Staphylococcus aureus infection as the cause of diseases classified elsewhere; F17.200 Nicotine dependence, unspecified, uncomplicated; Z79.899 Other long term (current) drug therapy
CPT/HCPCS: 10060; 99282-25

== ENCOUNTER 2021-12-14 19:40 | Emergency (ER) | payer OTHER ==
[~2021-12-14] VITALS: Ht 167.6 cm; Wt 81.7 kg
[~2021-12-14 19:40] MED LIST changes: +CENTANY30 GM TOP; +CLINDAMYCIN HC300 MG PO; +HYDROCODON-ACE1 EA11 PO
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
[2021-12-14] MEDS ORDERED: CLONAZEPAM0.5 MG (19:50)
[2021-12-14] MEDS ORDERED: BUPRENORPHINE-1 EACH SL (19:50)
[2021-12-14] MEDS ORDERED: LAMOTRIGINE25 MG PO (19:50)
[2021-12-14] MEDS ORDERED: LATUDA40 MG PO (19:50)
[2021-12-14] MEDS ORDERED: CLONAZEPAM1 MG (19:50)
[2021-12-14] MEDS ORDERED: CYCLOBENZAPRINE10 MG PO (21:54)
[2021-12-14] MEDS ORDERED: MOBIC7.5 MG PO (21:54)
[2021-12-14] MEDS ORDERED: AMOX TR-K CLV1 EAC1 PO (21:57)
== END 2021-12-14 22:18 | disposition home or self-care (01) ==
LOC: ED 19:40
DX: S02.2XXA Fracture of nasal bones, initial encounter for closed fracture (principal); S50.12XA Contusion of left forearm, initial encounter; F17.200 Nicotine dependence, unspecified, uncomplicated; Z79.899 Other long term (current) drug therapy; Y09 Assault by unspecified means
CPT/HCPCS: 36415; 70450; 70486; 72125; 73090; 84703; 96374; 96375; 99284-25; J1885; J2060

== ENCOUNTER 2022-02-15 15:35 | Emergency (ER) | payer OTHER ==
[~2022-02-15] VITALS: Ht 167.6 cm; Wt 81.7 kg
[~2022-02-15 15:35] MED LIST changes: +AMOX TR-K CLV1 EAC1 PO; +BUPRENORPHINE-1 EACH SL; +CLONAZEPAM0.5 MG; +CLONAZEPAM1 MG; +LAMOTRIGINE25 MG PO; +LATUDA40 MG PO; +MOBIC7.5 MG PO; +REGLAN10 MG PO
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
[2022-02-15] MEDS ORDERED: LITHIUM CARBON300 MG PO (15:44)
[2022-02-15] MEDS ORDERED: CLONAZEPAM0.5 MG PO (16:19)
[2022-02-15] MEDS ORDERED: LAMOTRIGINE100 MG PO (16:21)
[2022-02-15] MEDS ORDERED: ONDANSETRON ODT8 MG PO (16:39)
[2022-02-15] MEDS ORDERED: VENTOLIN HFA18 GM INH (16:39)
== END 2022-02-15 16:56 | disposition home or self-care (01) ==
LOC: ED 15:35
DX: U07.1 COVID-19 (principal); J40 Bronchitis, not specified as acute or chronic; F17.200 Nicotine dependence, unspecified, uncomplicated; Z79.899 Other long term (current) drug therapy
CPT/HCPCS: 99284; A9270

== ENCOUNTER 2022-04-14 21:22 | Emergency (ER) | payer OTHER ==
[~2022-04-14] VITALS: Ht 167.6 cm; Wt 81.7 kg
[~2022-04-14 21:22] MED LIST changes: +LITHIUM CARBON300 MG PO; +VENTOLIN HFA18 GM INH
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
== END 2022-04-14 23:53 | disposition home or self-care (01) ==
LOC: ED 21:22
DX: R10.9 Unspecified abdominal pain (principal); M54.50 Low back pain, unspecified; F15.10 Other stimulant abuse, uncomplicated; F17.200 Nicotine dependence, unspecified, uncomplicated
CPT/HCPCS: 36415; 51701; 74176; 80053; 81001; 83690; 84703; 85025; 99284-25; J1885; J2270; J2405

== ENCOUNTER → 2022-04-21 | Emergency (ER) | payer OTHER ==
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
== END ==
LOC: ED 16:33
DX: S42.012A Anterior displaced fracture of sternal end of left clavicle, initial encounter for closed fracture (principal); S53.124A Posterior dislocation of right ulnohumeral joint, initial encounter; S00.83XA Contusion of other part of head, initial encounter; F17.200 Nicotine dependence, unspecified, uncomplicated; V48.5XXA Car driver injured in noncollision transport accident in traffic accident, initial encounter; Y92.411 Interstate highway as the place of occurrence of the external cause; Z79.899 Other long term (current) drug therapy; Z20.822 Contact with and (suspected) exposure to COVID-19
CPT/HCPCS: 36415; 70450; 71045; 71260; 72125; 72170; 73030; 73080; 73130; 74177; 80053; 81001; 82150; 82553; 83605; 83690; 84702; 85025; 86850; 86900; 86901; 87502; C9803; G0480; J2250; J2704; J3010; J7030; Q9967; U0003

== ENCOUNTER 2022-05-16 16:57 | Emergency (ER) | payer OTHER ==
[~2022-05-16] VITALS: Ht 167.6 cm; Wt 81.7 kg
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
[2022-05-16] MEDS ORDERED: LATUDA40 MG PO (19:52)
[2022-05-16] MEDS ORDERED: HYDROCODON-ACE1 EA10 PO (20:26)
== END 2022-05-16 21:17 | disposition home or self-care (01) ==
LOC: ED 16:57
DX: G89.18 Other acute postprocedural pain (principal); F17.200 Nicotine dependence, unspecified, uncomplicated; Z79.899 Other long term (current) drug therapy
CPT/HCPCS: 29105; 73080; 99283-25; A9270

== ENCOUNTER 2022-08-06 03:37 | Emergency (ER) | payer OTHER ==
[~2022-08-06] VITALS: Ht 167.6 cm; Wt 81.6 kg
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
--- NOTE | 2022-08-09 12:25 | EKG ---
[facility] [address] [place] [address] Signed Normal sinus rhythm Normal ECG No previous ECGs available Confirmed by Jennifer Salvador MD () on 08/07/2022 11:20:55 PM Electronically Signed By: JENNIFER SALVADOR MD 08/07/22 232 Electronically Signed By: JENNIFER SALVADOR MD 08/09/22 1225 PATIENT NAME: SUSIFEROZSERA Electrocardiogram DATE OF : 88 PHYSICIAN: JENNIFER SALVADOR MD REPORT #: [id number] REPORT IS CONFIDENTIAL AND NOT TO BE RELEASED WITHOUT AUTHORIZATION
--- NOTE | 2022-08-09 12:25 | EKG ---
[facility] [address] [place] [address] Signed Sinus tachycardia Otherwise normal ECG When compared with ECG of 06-AUG-2022 04:05, No significant change was found Confirmed by Jennifer Morton MD () on 08/07/2022 11:22:04 PM Electronically Signed By: JENNIFER MORTON MD 08/07/222321 Electronically Signed By: JENNIFER MORTON MD 08/09/22 1225 PATIENT NAME: ELLA BEVERLYDAWSON TORRES Electrocardiogram DATE OF : 88 PHYSICIAN: JENNIFER MORTON MD REPORT #: [id number] REPORT IS CONFIDENTIAL AND NOT TO BE RELEASED WITHOUT AUTHORIZATION
== END 2022-08-07 09:00 | disposition short-term general hospital (02) ==
LOC: ED 03:37
DX: T42.6X2A Poisoning by other antiepileptic and sedative-hypnotic drugs, intentional self-harm, initial encounter (principal); F19.10 Other psychoactive substance abuse, uncomplicated; F43.10 Post-traumatic stress disorder, unspecified; F31.81 Bipolar II disorder; F17.200 Nicotine dependence, unspecified, uncomplicated; Z79.899 Other long term (current) drug therapy
CPT/HCPCS: 36415; 80053; 81003; 84443; 84703; 85025; 87502; 93005; 93010; 96374; 96375; 96376; 99285-25; A9270; G0480; J1885; J2060; J2310; J2405; U0003

== ENCOUNTER 2022-08-23 11:24 | Emergency (ER) | payer OTHER ==
[~2022-08-23] VITALS: Ht 167.6 cm; Wt 81.7 kg
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
== END 2022-08-23 13:50 | disposition home or self-care (01) ==
LOC: ED 11:24
DX: Z13.30 Encounter for screening examination for mental health and behavioral disorders, unspecified (principal); Z20.822 Contact with and (suspected) exposure to COVID-19
CPT/HCPCS: 36415; 80053; 81003; 84443; 84703; 85025; 87502; 99283; G0480; U0003

== ENCOUNTER 2023-02-01 06:57 | Day surgery (SDC) | payer OTHER ==
[~2023-02-01] VITALS: Ht 167.6 cm; Wt 75.0 kg
--- NOTE | ~2023-02-01 | OR ---
[facility] [address], [place] [address] Draft DATE OF OPERATION: 02/01/2023 SURGEON: Bertha Wallis MD PREOPERATIVE DIAGNOSES: 1. Incomplete . 2. Vulvar abscess x2. POSTOPERATIVE DIAGNOSES: 1. Incomplete . 2. Vulvar abscess x2. PROCEDURES: 1. Suction dilation and curettage. 2. Incision and drainage of vulvar abscesses. ANESTHESIA: General, LMA. ESTIMATED BLOOD LOSS: 200 mL. DRAINS: None. INDICATIONS AND FINDINGS: The patient is a 32-year-old female, who presented to the emergency room after having a miscarriage, which started on December 18. She was seen in [place] at that time and was told that she did not need any further followup. She was approximately 13 weeks at that time. Unfortunately, since that time, she has continued to have bleeding, which has been intermittently heavy with passage of clots. The bleeding increase last p.m. as well as increasing pain, which caused her to present to the emergency room today. Her evaluation showed an open os with enlarged uterus and evidence of retained products on ultrasound. She also had noted vulvar abscesses, which had become increasingly painful. At the time of surgery, the uterus was enlarged approximately 10 weeks' size. The os was opened and easily accepted a #10 dilator. There was a moderate amount of tissue within. She did have some initial atony, which responded to treatment. She also had an abscess on the right labia majora, which had no obvious purulent material and had appeared to be possibly already draining preoperatively. There was an abscess on the right buttocks and lower perineum area, which measured about 3 cm and a large amount PATIENT NAME: SERA BEVERLY OPERATIVE REPORT DATE OF : [birth year] REPORT #: [id number] PHYSICIAN: BERTHA WALLIS MD PCP: MOHAMUD HOUSER MD REPORT IS CONFIDENTIAL AND NOT TO BE RELEASED WITHOUT AUTHORIZATION [facility] [address], [place] [address] Draft purulent material was found with the I and D. DESCRIPTION OF PROCEDURE: The patient was prepped and draped in the dorsal lithotomy position. An open-sided speculum was placed and the anterior lip of the cervix was visualized and grasped with a single-tooth tenaculum. The cervix was open and easily accepted with a #10 dilator. A #10 curved suction curette was then introduced with a moderate amount of tissue removed. Sharp curettage was done with essentially no tissue. She initially had some brisk bleeding and this responded to IV Pitocin drip as well as IM Methergine. Her bleeding diminished and with that, the speculum was removed after removal of the tenaculum. Attention was directed to the labia. The right labial abscess underwent an I and D over the pointing area. No purulent material was seen. There was some firmness below the area. Following this, the abscess on the right buttocks area underwent an I and D with a large amount of purulent material. This was cultured as well as Gram stained. The loculations were broken up with a Mosquito. The cavity was irrigated, a large amount with saline until this ran clear. Following this, the cervix was re-evaluated and again there did not appear to be any excess bleeding from the cervix itself. The procedure was then terminated. The patient was taken to the recovery room in good condition. MD REBECCA Gee/MODL /[id number] Copies: ~ PATIENT NAME: SERA BEVERLY OPERATIVE REPORT DATE OF : [birth year] REPORT #: [id number] PHYSICIAN: BERTHA WALLIS MD PCP: MOHAMUD HOUSER MD REPORT IS CONFIDENTIAL AND NOT TO BE RELEASED WITHOUT AUTHORIZATION
--- NOTE | ~2023-02-01 | CONS ---
[facility] [address], [place] [address] Draft DATE OF CONSULTATION: 02/01/2023 REQUESTING PHYSICIAN: Ravin. HISTORY OF PRESENT ILLNESS: The patient is a 32-year-old female, 3, para 1, VIP 1, who had a spontaneous miscarriage at approximately 13 weeks on December 18. She was seen in [place] by her primary only. She was told she did not need any followup. However, she has continued to bleed since that time. The bleeding has been intermittently heavy with clotting. Today, the bleeding has increased further as well as some increasing pain. This brought her to the emergency room for evaluation. Also, she has noticed vulvar abscesses, which has worsened today. She has a history of these in the past. REVIEW OF SYSTEMS: Otherwise, negative. PAST HISTORY: SURGERIES: In April of 2022, repair of left collarbone fracture and tonsillectomy. HOSPITALIZATIONS: Otherwise, positive for childbirth. ILLNESSES: Positive for bipolar disease, anxiety and depression, on medication. Positive for history of opiate use disorder with no use for 5-6 years. She has been on buprenorphine, but takes rarely at this point. She has no history of IV drug use. Negative for hypertension, diabetes, heart murmurs, heart problems, asthma, liver, kidney problems, or migraines. HABITS: Positive tobacco, 3-4 cigarettes per day. Negative for alcohol or drug use. MEDICATIONS: 1. Lamictal 400 mg daily. 2. Trazodone 200 mg at bedtime as needed. 3. Motrin as needed. 4. Prazosin at bedtime as needed for nightmares. 5. Klonopin as needed. 6. Buprenorphine, rare. ALLERGIES: No known allergies. PHYSICAL EXAMINATION: VITAL SIGNS: Blood pressure is 128/79, temp 97.9, and pulse 88. GENERAL: She is a well-developed, well-nourished female, in no acute distress. Her affect is pleasant and cooperative. LUNGS: Clear. PATIENT NAME: SERA BEVERLY CONSULTATION DATE OF : [birth year] REPORT #: [id number] PHYSICIAN: BERTHA WALLIS MD PCP: MOHAMUD HOUSER MD REPORT IS CONFIDENTIAL AND NOT TO BE RELEASED WITHOUT AUTHORIZATION [facility] [address], [place] [address] Draft HEART: Regular rate and rhythm without murmur. ABDOMEN: With active bowel sounds. Soft, slightly tender in the suprapubic and left lower quadrant area. There is no rebound. : On pelvic exam, there is a pointing abscess on the right labia majora with swelling and tenderness. There is also some swelling and tenderness in the right buttocks and the lower perineum. Vagina shows normal Bartholin's gland. There is a small amount of blood. The cervical os is open. Uterus is approximately 8-10 weeks' size, slightly tender. Adnexa, no palpable masses or tenderness. Rectal is deferred. IMAGING DATA: Ultrasound shows a thickened heterogeneous endometrium, which is hypervascular. LABORATORY DATA: H and H of 10.6 and 31.7, white count 5.1, and platelets are 241. Quant 108. Electrolytes all normal other than a potassium of 2.9, calcium of 8.2, albumin of 3.3. IMPRESSION: Incomplete , reveals suction, dilation and curettage necessary for completion of the miscarriage, which should resolve her retained products as well and improve her bleeding. She has anemia secondary to: 1. Vulvar abscesses. 2. Hypokalemia, we will replace postoperatively. PLAN: Suction D and C with I and D of vulvar abscesses at [facility]. The risks of surgery including, but not limited to infection, bleeding, and possible need for transfusion were discussed. She had no questions and requested no further information. Bertha Wallis MD PJW/MODL /[id number] Copies: ~ PATIENT NAME: SERA BEVERLY CONSULTATION DATE OF : [birth year] REPORT #: [id number] PHYSICIAN: BERTHA WALLIS MD PCP: MOHAMUD HOUSER MD REPORT IS CONFIDENTIAL AND NOT TO BE RELEASED WITHOUT AUTHORIZATION
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
[2023-02-01] MEDS ORDERED: PRAZOSIN HCL1 MG PO (07:07)
[2023-02-01] MEDS ORDERED: HYDROXYZINE PAM50 MG PO (07:07)
[2023-02-01] MEDS ORDERED: CLONAZEPAM0.5 MG PO (07:08)
[2023-02-01] MEDS ORDERED: TRAZODONE HCL100 MG PO (07:08)
--- NOTE | 2023-02-01 12:14 | NUR ---
02/01/23 1214 [place] 1204 PATIENT INTO PACU BAY 5. PATIENT NONREACTIVE. BREATHING EQUAL AND UNLABORED. OXYGEN SATURATIONS ABOVE 90% ON MASK. RR 10-20. SR ON TELE. LIZY PAD PLACED AT SURGICAL SITE. SMALL AMOUNT OF RED DRAINAGE. IVF INFUSING. SCD'S ON.
[2023-02-01 13:00] VITALS: BP 105/71
--- NOTE | 2023-02-01 13:10 | NUR ---
PATIENT ARRIVES FROM PACU IN BED. PATIENT REFUSES TO ALLOW STAFF TO VIEW ABCESS AREAS DRAINED OR ASSESS PAD AT THIS TIME VOICING SHE FINALLY COMFORTABLE AND DOES NOT WANT TO MOVE. TEARFUL, STATES SHE FEELS ALONE, WHICH IS CONTRIBUTING TO TEARFULNESS. VITALS OBTAINED. PRIOR TO ARRIVAL, PATIENT HAD SCANT BLEEDING, PER FELIPE PENA.
[2023-02-01 14:05] VITALS: BP 115/74
--- NOTE | 2023-02-01 14:54 | NUR ---
1445- THIS NURSE AMBULATING ANOTHER PATIENT ON UNIT. THIS PATIENT NOTED TO BE DRESSED, WALKING IN HALLWAY. THIS NURSE WALKS DOWN [place], LOOKING FOR PATIENT FOR ASSISTANCE. UNABLE TO LOCATE PATIENT. 1448- FELIPE QUISPE/VOCATIONAL REHAB CONSULTANT NOTIFIED BY Juan AGUIRRE RN. SECURITY NOTIFIED BY VOCATIONAL REHAB CONSULTANT. 1454- SECURITY RONNI, FINDS PATIENT STANDING OUTSIDE OF FACILITY, SMOKING A CIGARETTE. PATIENT RETURNS TO ROOM WITH THIS NURSE. IV DC'D. PATIENT STATES SHE CAME LOOKING FOR STAFF REGARDING DISCHARGE FROM FACILITY AND WAS UNABLE TO LOCATE STAFF, INFORMED HER STAFF WERE IN OTHER PATIENT ROOMS. INSTRUCTED STAFF MAY CALL TAXI IF NEEDED. STATES SHE HAS NO WHERE TO GO BUT WILL CONTINUE TO MAKE PHONE CALLS.
[2023-02-01] MEDS ORDERED: NUVARING VAGIN1 EACH VAGINAL (15:02)
[2023-02-01] MEDS ORDERED: K-TAB ER20 MEQ PO (15:03)
[2023-02-01] MEDS ORDERED: IBUPROFEN800 MG PO (15:03)
[2023-02-01] MEDS ORDERED: TYLENOL EXTRA500 MG PO (15:04)
[2023-02-01] MEDS ORDERED: TRAMADOL HCL50 MG PO (15:04)
[2023-02-01] MEDS ORDERED: BACTRIM DS TAB1 EACH PO (15:05)
[2023-02-01] MEDS ORDERED: LIDOCAINE HCL100 ML MT (15:05)
--- NOTE | 2023-02-01 15:20 | NUR ---
AMBULATES TO NURSE'S STATION AND STATES SHE NEEDS TO LEAVE FACILITY NOW. CONTINUES TO REFUSE TO LET STAFF ASSESS BLEEDING ETC. DC INSTRUCTIONS GIVEN. VERBALIZES UNDERSTANDING.
--- NOTE | 2023-02-01 15:28 | NUR ---
AMBULATES OUT OF FACILITY WITH THIS NURSE. DC FROM FACILITY.
== END 2023-02-01 15:20 | disposition home or self-care (01) ==
LOC: ED 06:57 → DSVR 10:22 → DS 10:22 → MS 10:58 → DS 15:20
PROVIDERS: ATTEND Obstetrics & Gynecology
PROC: 10D17ZZ Extraction of Products of Conception, Retained, Via Natural or Artificial Opening (ICD-10-PCS; 2023-02-01)
PROC: 0U9MXZZ Drainage of Vulva, External Approach (ICD-10-PCS; principal; 2023-02-01 11:00)
DX: O03.0 Genital tract and pelvic infection following incomplete spontaneous abortion (principal); L02.31 Cutaneous abscess of buttock
CPT/HCPCS: 36415; 76801; 76817; 80053; 84702; 84703; 85025; 86900; 86901; 87205; A9270; J0131; J0690; J1100; J1170; J1885; J2001; J2210; J2405; J2590; J2704; J3010

== ENCOUNTER 2024-01-09 18:46 | Emergency (ER) | payer OTHER ==
[~2024-01-09] VITALS: Ht 167.6 cm; Wt 87.3 kg
[~2024-01-09 18:46] MED LIST changes: +ACETAMINOPHEN500 MG PO; +HYDROXYZINE PAM50 MG PO; +K-TAB ER20 MEQ PO; +LAMOTRIGINE200 MG PO; +LIDOCAINE HCL100 ML MT; +NUVARING VAGIN1 EACH VAGINAL; +PRAZOSIN HCL1 MG PO; +TRAZODONE HCL100 MG PO; +TYLENOL EXTRA500 MG PO; +VYVANSE40 MG PO
[2024-01-09] MEDS ORDERED: DISKETS40 MG PO (19:25)
[2024-01-09 20:08] VITALS: BP 133/94
[2024-01-11] MEDS ORDERED: ONDANSETRON ODT8 MG PO (13:00)
== END 2024-01-09 20:09 | disposition home or self-care (01) ==
LOC: ED 18:46
DX: O99.322 Drug use complicating pregnancy, second trimester (principal); F41.9 Anxiety disorder, unspecified; F11.10 Opioid abuse, uncomplicated; O99.332 Smoking (tobacco) complicating pregnancy, second trimester; F17.200 Nicotine dependence, unspecified, uncomplicated; Z3A.20 20 weeks gestation of pregnancy
CPT/HCPCS: 99283

== ENCOUNTER 2024-01-24 05:41 | Emergency (ER) | payer OTHER ==
[~2024-01-24] VITALS: Ht 167.6 cm; Wt 87.8 kg
[~2024-01-24 05:41] MED LIST changes: +DISKETS40 MG PO
[2024-01-24 06:13] VITALS: BP 130/89
== END 2024-01-24 06:13 | disposition other institution, planned readmission (95) ==
LOC: ED 05:41
DX: Z02.89 Encounter for other administrative examinations (principal); O99.332 Smoking (tobacco) complicating pregnancy, second trimester; F17.200 Nicotine dependence, unspecified, uncomplicated; Z3A.21 21 weeks gestation of pregnancy
CPT/HCPCS: 99283

== ENCOUNTER 2024-04-17 07:33 | Inpatient (IN) | payer OTHER ==
[~2024-04-17] VITALS: Ht 167.6 cm; Wt 93.4 kg
--- OUTSIDE RECORDS SUMMARY | ~2024-04-17 | XMS | Continuity of Care Document ---
Demographics + + + | Address | [address] | | | [place] [address] | + + + | Preferred Language | Unknown | + + + | Marital Status | Unknown | + + + | Taoist Affiliation | Unknown | + + + | Race | or | + + + | Ethnic Group | Not or | + + + Author + + + | Author | [facility] | + + + | Organization | [facility] | + + + | Address | [address] | | | [place] [address] | + + + | Phone | | + + + Care Team Providers + + + + | Care Managed Care Analyst Name | Role | Phone | + + + + Unavailable | Unavailable | + + + + Allergies No information. Encounters No information. Functional Status No information. Immunizations No information. Medications No information. Problems + + + + | date | description | facility | + + + + | 2024-02-28 09:48:47 | Encounter for other | [facility] | | | general examination | | + + + + Procedures No information. Results/Labs No information. Social History +--------+ + + | date | description | facility | +--------+ + + Vital Signs No information."
[~2024-04-17 07:33] MED LIST changes: +CEPHALEXIN500 M1 PO; +METHADONE HCL40 MG PO; +TRAZODONE HCL50 MG PO
[2024-04-17] MEDS ORDERED: OXYTOCIN/DEXTROSE 5% 20 UNITS/100 ML BAG ONE (08:28)
[2024-04-17] MEDS ORDERED: LIDOCAINE HCL 2% 5 ML SDV ONE (08:28)
[2024-04-17] MEDS ORDERED: dexmedeTOMIDine HCl 200 MCG/2 ML VIAL ONE (08:29)
[2024-04-17] MEDS ORDERED: ROPIVACAINE 0.2% 200 ML BAG ONE (08:29)
[2024-04-17] MEDS ORDERED: BUPIVACAINE HCL 0.25% 10 ML SDV INJ ONE (08:29)
[2024-04-17] MEDS ORDERED: HYDROCORTISONE ACETATE 25 MG SUPP PR PRN ×2 (08:30→09:15)
[2024-04-17] MEDS ORDERED: CALCIUM CARBONATE 500 MG CHEW PO PRN ×3 (08:30→09:15)
[2024-04-17] MEDS ORDERED: CALCIUM GLUCONATE 1,000 MG/10 ML VIAL IV PRN (08:30)
[2024-04-17] MEDS ORDERED: OXYTOCIN/0.9 % SODIUM CHLORIDE 500 ML IV SCH (08:30)
[2024-04-17] MEDS ORDERED: OXYTOCIN/DEXTROSE 5% 20 UNITS/100 ML BAG IV SCH (08:30)
[2024-04-17] MEDS ORDERED: ACETAMINOPHEN 325 MG TAB PO PRN ×2 (08:30→09:15)
[2024-04-17] MEDS ORDERED: MAGNESIUM SULFATE 500 ML IV SCH (08:30)
[2024-04-17] MEDS ORDERED: OXYCODONE HCL 5 MG TAB PO PRN (08:30)
[2024-04-17] MEDS ORDERED: LACTATED RINGER'S 1,000 ML IV SCH (08:30)
[2024-04-17] MEDS ORDERED: BETAMETHASONE SOD PHOS/ACETATE 6 MG/ML ML IM SCH (08:30)
[2024-04-17] MEDS ORDERED: IBUPROFEN 600 MG TAB PO PRN ×2 (08:30→09:15)
[2024-04-17] MEDS ORDERED: WITCH HAZEL/GLYCERIN 1 EA PAD TOP PRN ×2 (08:30→09:15)
[2024-04-17] MEDS ORDERED: OXYCODONE/APAP 5/325 TAB PO PRN (08:30)
[2024-04-17] MEDS ORDERED: MAGNESIUM HYDROXIDE 30 ML UDC PO PRN ×2 (08:30→09:15)
[2024-04-17] MEDS ORDERED: MAGNESIUM HYDROXIDE/AL HYDROX 30 ML CUP PO PRN ×3 (08:30→09:15)
[2024-04-17] MEDS ORDERED: BENZOCAINE 60 ML AEROSOL TOP PRN ×2 (08:30→09:15)
[2024-04-17] MEDS ORDERED: HYDROCODONE/ACETA 5/325 TAB PO PRN (08:30)
[2024-04-17] MEDS ORDERED: TRANEXAMIC ACID IN NACL,ISO-OS 100 ML IV ONE (08:39)
[2024-04-17 08:42] LABS: BASOPHILS 0.3 % (0-2)
[2024-04-17 08:45] LABS: EOSINOPHILS 0.3 % (0-6); HEMATOCRIT 42.6 % (35.0-50.0); LYMPHOCYTES 12.2 % (24-44); MONOCYTES 4.7 % (0-12); NEUTROPHILS 82.5 % (39-80); PLATELET COUNT 190 K/uL (140-440); RBC 4.53 M/ul (4.3-5.7); RDW 13.3 (10.5-15.0)
[2024-04-17] MEDS ORDERED: SENNOSIDES/DOCUSATE 1 EA TAB PO SCH ×2 (09:00→21:00)
[2024-04-17] MEDS ORDERED: LIDOCAINE 2% VISCOUS 6 ML SYR TOP ONE (09:15)
[2024-04-17 09:20] LABS: ABO A; RH POSITIVE
[2024-04-17 09:21] LABS: ANTIBODY SCREEN NEGATIVE
[2024-04-17 10:00] LABS: INFLUENZA B NAA NEGATIVE (NEGATIVE); RESPIRATORY SYNCYTIAL VIR NAA NEGATIVE (NEGATIVE)
[2024-04-17 10:27] LABS: AMPHETAMINES, URINE NEGATIVE (NEGATIVE); BARBITURATES, URINE NEGATIVE (NEGATIVE); BENZODIAZEPINE, URINE NEGATIVE (NEGATIVE); BUPRENORPHINE, URINE NEGATIVE (NEGATIVE); CANNABINOID, URINE POSITIVE (NEGATIVE); COCAINE, URINE NEGATIVE (NEGATIVE); ECSTASY, URINE NEGATIVE (NEGATIVE); FENTANYL, URINE POSITIVE (NEGATIVE); METHADONE, URINE POSITIVE (NEGATIVE); OPIATES, URINE NEGATIVE (NEGATIVE); OXYCODONE, URINE NEGATIVE (NEGATIVE); PHENCYCLIDINE, URINE NEGATIVE (NEGATIVE)
[2024-04-17 12:59] VITALS: BP 124/82
[2024-04-17] MEDS ORDERED: TRAZODONE HCL 100 MG TAB PO PRN (20:30)
[2024-04-17] MEDS ORDERED: lamoTRIgine 100 MG TAB PO ONE (20:30)
[2024-04-18] MEDS ORDERED: OXYTOCIN 10 UNITS/ML VIAL IM ONE (08:15)
--- NOTE | 2024-04-18 10:15 | PR ---
[facility] [address] [place] [address] Signed PP Progress Notes Datetime Report Generated by CPN: 04/18/2024 10:14 SUBJECTIVE: [id number] Pain: Within Normal Limits Nausea/Vomiting: Denies Flatus: Yes Vital Signs: [id number] Vital Signs: Reviewed; Within Normal Limits Cardiovascular: Normal Respiratory: Normal Abdomen/Uterus: Normal Lochia: Normal Vulva/Perineum: Not Done Breasts: Not Done CVA Tenderness: Normal Extremities: Normal IMPRESSION/PLAN/PROCEDURES: [id number] Impression: Normal Progression Plan: Continue Present Management; Discharge Procedures: None Signing Physician: Mirian Knutson MD Copies: ~ *Electronically Signed* 04/18/24 1014 MIRIAN KNUTSON MD PATIENT NAME: SERA BEVERLY PROGRESS NOTE DATE OF : 88 PHYSICIAN: MIRIAN KNUTSON MD RPT #: [id number] REPORT IS CONFIDENTIAL AND NOT TO BE RELEASED WITHOUT AUTHORIZATION
== END 2024-04-18 11:00 | disposition home or self-care (01) | DRG 805 ==
LOC: FBCO 07:33 → FBC 07:58
PROVIDERS: ADMIT Obstetrics & Gynecology; ATTEND Obstetrics & Gynecology
PROC: 10E0XZZ Delivery of Products of Conception, External Approach (ICD-10-PCS; principal; 2024-04-17)
PROC: 0HQ9XZZ Repair Perineum Skin, External Approach (ICD-10-PCS; 2024-04-17)
DX: O60.14X0 Preterm labor third trimester with preterm delivery third trimester, not applicable or unspecified (principal); U07.1 COVID-19; Z37.0 Single live birth; O99.324 Drug use complicating childbirth; O98.52 Other viral diseases complicating childbirth; Z3A.34 34 weeks gestation of pregnancy; F11.10 Opioid abuse, uncomplicated; O62.3 Precipitate labor; O69.81X0 Labor and delivery complicated by cord around neck, without compression, not applicable or unspecified; O70.0 First degree perineal laceration during delivery; O99.334 Smoking (tobacco) complicating childbirth; F17.210 Nicotine dependence, cigarettes, uncomplicated; F12.90 Cannabis use, unspecified, uncomplicated
CPT/HCPCS: 36415; 80307; 85025; 85384; 85610; 85730; 86850; 86900; 86901; 87502; A9270; J0702; J2001; J2590; J2795; U0002